=== PATIENT | male | born 1970 | race Caucasian/White ===

== ENCOUNTER 2024-11-10 19:04 | Emergency (ER) | payer BC, OTHER, SELFPAY ==
[2024-11-10 19:24] VITALS: BP 172/102; PULSE 69; RESP 15; TEMP 36; O2SAT 95; BMI 28.6
--- NOTE | 2024-11-10 19:29 | DI.RAD.S_ITS ---
PROCEDURE: XR RIBS LT MIN 3V W CXR1V INDICATIONS: fall, left rib pain TECHNIQUE: 2 views of the ribs were acquired, along with a single view chest. COMPARISON: None. FINDINGS: Surgical changes and devices: None. Bones and chest wall: Suspected minimally displaced fracture of the anterior left 7th rib. No suspicious bony lesions. Overlying soft tissues appear unremarkable. Lungs and pleura: No pleural effusions or pneumothorax. Lungs appear clear. Mediastinum: Mediastinal contours appear normal. Heart size is normal. IMPRESSION: Suspected minimally displaced fracture of the anterior left 7th rib. No pleural effusion or pneumothorax. Approved by: Laci Carmen M.D. on 11/10/2024 at 20:13
== END 2024-11-10 23:15 | disposition left against medical advice (07) ==
PROVIDERS: Emergency Provider Emergency Medicine; PCP Family Medicine
DX: R07.81 Pleurodynia (principal); W10.1XXA Fall (on)(from) sidewalk curb, initial encounter
CPT/HCPCS: 71101; 99281

== ENCOUNTER → 2024-11-23 08:03 | Outpatient (CLI) | payer BC, OTHER, SELFPAY ==
[2024-11-23 09:02] LABS: Add Manual Diff / Slide Review NO; Basophils Absolute Auto 100 /uL (0-100); Eosinophils Absolute Auto 200 /uL (0-450); Eosinophils Percent Auto 3.5 % (2-4); Hematocrit 45.4 % (41-53); Hemoglobin 16.1 g/dL (13.5-17.5); Lymphocytes Absolute Auto 1400 /uL (1100-4500); Mean Corpuscular HGB Conc 35.4 % (30-36); Mean Corpuscular Hemoglobin 32.3 PG (26-34); Mean Corpuscular Volume 91.3 fL (80-100); Monocytes Absolute Auto 500 /uL (0-900); Monocytes Percent Auto 8.1 % (3-14); Neutrophils Absolute Auto 4400 /uL (1500-7000); Neutrophils Percent Auto 66.4 % (50-75); Platelet Count 211 X10^3/uL (150-400); Red Blood Cell Count 4.97 X10^6/uL (4.5-5.9); Red Cell Distribution Width 13.7 % (11.6-14.8); White Blood Cell Count 6.7 X10^3/uL (4.5-11.0)
[2024-11-23 09:12] LABS: Hemoglobin A1C% w Est Avg Glu 6.2 % (4.0-6.0)
[2024-11-23 09:20] LABS: Alanine Aminotransferase 30 IU/L (<50); Albumin 4.5 g/dL (3.5-5.0); Alkaline Phosphatase 81 U/L (38-126); Aspartate Aminotransferase 32 IU/L (17-59); BUN Creatinine Ratio 28.2 (6-22); Bilirubin Total 0.7 mg/dL (0.2-1.3); Blood Urea Nitrogen 24 mg/dL (9-20); Calcium 9.2 mg/dL (8.4-10.2); Carbon Dioxide 26 mmol/L (22-32); Chloride 104 mmol/L (98-107); Cholesterol 137 mg/dL (140-199); Estimated Glomerular Filt Rate > 60 mL/min (>60); Globulin 2.2 g/dL (1.7-4.1); Glucose 144 mg/dL (70-99); HDL Cholesterol 34 mg/dL (40-60); HEMOLYSIS < 15 (0-50); LDL Cholesterol Calculated 68 mg/dL (<100); Potassium 3.7 mmol/L (3.4-5.1); Sodium 139 mmol/L (137-145); Total Protein 6.7 g/dL (6.3-8.2); Triglycerides 174 mg/dL (35-150)
== END ==
PROVIDERS: PCP Family Medicine; Referring Provider Family Medicine; Visit Provider Family Medicine
DX: I10 Essential (primary) hypertension (principal); E78.5 Hyperlipidemia, unspecified; E11.9 Type 2 diabetes mellitus without complications
CPT/HCPCS: 36415; 80053; 80061; 83036; 85025

== ENCOUNTER → 2024-12-08 10:38 | Outpatient (CLI) | payer BC, OTHER, SELFPAY | PROVIDERS: PCP Family Medicine; Referring Provider Urology; Visit Provider Urology | DX: N40.1 Benign prostatic hyperplasia with lower urinary tract symptoms (principal); Z12.5 Encounter for screening for malignant neoplasm of prostate; N52.9 Male erectile dysfunction, unspecified; R39.14 Feeling of incomplete bladder emptying; R35.1 Nocturia | CPT/HCPCS: 36415; 51798; 84153 ==

== ENCOUNTER 2025-03-03 15:15 | Outpatient (RCR) | payer BC, OTHER, SELFPAY ==
--- NOTE | 2024-12-11 17:24 | PT.OIE ---
Current Diagnoses Other specified postprocedural states (12/11/24) Past Medical History (Last Reviewed 12/08/24 @ 09:32 by Clive Davey DO) Patient left without being seen Visit Care Team Role Provider Type Juana Mcmanus DO Attending Provider Physician Family Provider Primary Care Provider Referring Provider Specialty: Family Practice Address: [address] [place] [address], [facility] Email: [email or web address] Physical Therapy Initial Evaluation PT-OP-A Visit Information Start: 12/11/24 15:25 Freq: Status: Active Protocol: Document 12/11/24 15:25 BL (Rec: 12/11/24 17:23 BL Laptop) Out-Patient Physical Therapy Visit Information Visit Information Visit Type Initial Evaluation Visit Start Time 15:25 Visit Number (1) 1/10 Number of TUFT MACHINE OPERATOR Visits 0 PT-OP-C Subjective Start: 12/11/24 15:25 Freq: Status: Active Protocol: Document 12/11/24 15:25 BL (Rec: 12/11/24 17:23 BL Laptop) OP-PT Subjective Patient Comments Patient Comments Pt presents to the clinic following L shoulder rotator cuff repair on May 142023. Pt had follow up on November 24. Pt was cleared from the surgeon for return to normal activity. Surgeon did state that pt was limited in full AROM and strength and suggested return to PT for additional strength and ROM training. Pt states he recently moved to the area in September however has not been very active due to a recent fall resulting in a broken 7th rib on the L side. States this is mostly healed and he has started to return to activity but has not returned to the gym yet. Pt states no pain with activity but has been very cautious with motions away from the side of his body. He states his goals are to return to regular strength training. Patient Reported Progress Improving Patient Questionnaires Quick Dash- Upper Extremity Quick Dash UE Score 6% disability PT-OP-H Neuro Start: 12/11/24 15:25 Freq: Status: Active Protocol: Document 12/11/24 15:25 BL (Rec: 12/11/24 17:23 BL Laptop) Sensation Evaluation Comments Summary Comments no sensation loss noted Coordination Evaluation Comments Coordination Comments no coordination deficits noted PT-OP-J Posture/Palpation/Skin Start: 12/11/24 15:25 Freq: Status: Active Protocol: Document 12/11/24 15:25 BL (Rec: 12/11/24 17:23 BL Laptop) Posture Evaluation Comments Posture Comments Pt demos normal posture, demos protracted positioning of L shoulder along with slight wining noted. Palpation Assessment Location Shoulder Palpation Details Pt demos increased tissue tension through L upper trap, demos decreased muscle tone to L scapular musculature. PT-OP-K Range of Motion Start: 12/11/24 15:25 Freq: Status: Active Protocol: Document 12/11/24 15:25 BL (Rec: 12/11/24 17:23 BL Laptop) Cervical Spine Range of Motion Cervical Spine Active Percentage Comments Demos full AROM without pain. Shoulder Goniometric Range of Motion Shoulder Left Flexion 140 Abduction 170 External Rotation at 45 degrees 60 Abduction Internal Rotation 70 PT-OP-M Strength Start: 12/11/24 15:25 Freq: Status: Active Protocol: Document 12/11/24 15:25 BL (Rec: 12/11/24 17:23 BL Laptop) Scapula Strength Scapula Manual Muscle Testing Right Elevation (C4) 5 Normal Adduction 4+ Good+ Left Elevation (C4) 5 Normal Adduction 4- Good- Shoulder Strength Shoulder Manual Muscle Testing Right Flexion 4+ Good+ Abduction (C5) 4+ Good+ Adduction 4+ Good+ External Rotation 4+ Good+ Internal Rotation 4+ Good+ Left Flexion 4 Good Extension 4- Good- Abduction (C5) 4- Good- Adduction 4 Good External Rotation 4 Good Internal Rotation 4 Good PT-OP-T Assessment and Plan Start: 12/11/24 15:25 Freq: Status: Active Protocol: Document 12/11/24 15:25 BL (Rec: 12/11/24 17:23 BL Laptop) Physical Therapy Assessment Rehab Potential Rehabilitation Potential Good Impairments Impairments Activity Tolerance, Coordination,Functional Activities,Functional Mobility ,Posture,ROM,Soft Tissue Mobility,Strength Goals 3 Clip On Sunglasses Inspector Goal (LTG) Pt will be able to complete 10 pushups without winging of L scapular for functional strength training by DC to reduce risk of re-injury. 2 Clip On Sunglasses Inspector Goal (LTG) Pt will demo shoulder flexion strength of 4+/5 by DC for improved functional strength for ADLS. 1 Short Term Goal (STG) Pt will be ind with HEP within 2 visits in order to progress toward adjunct faculty for medical terminology therapy goals. Jail Goal (LTG) Pt will demo full shoulder flexion to 160 deg or better by DC for improved functional range for overhead activities. Assessment Summary Assessment Pt presents seven months s/p L RC repair with good success, pt demos near full AROM without pain, pt continues to demo deficits in posture and scapular strength. Pt will benefit from skilled Physical Therapy intervention for safe exercise progression as he returns to weight lifting while also focusing on continued scapular strengthening and addressing deficits in AROM for return to PLOF. Physical Therapy Plan Frequency and Duration Frequency of Treatment 2x/Week Duration of treatment (weeks) 8 Plan of Care Start Date 12/11/24 Plan of Care End Date 02/05/25 Therapeutic Interventions Therapeutic Interventions Coordination Training,Home Exercise Program,Joint Mobilizations,Manual Therapy, Neuromuscular Re-education, Patient/Caregiver Education, Self-Care/Home Management,Soft Tissue Mobilization,Taping, Therapeutic Activities, Therapeutic Exercises Modalities Cold Pack/Ice Massage,Electric Stimulation,Hot Packs, Infrared Therapy,Traction- Mechanical,Ultrasound Next Visit Focus/Plan Next Note Type Treatment Note Next Visit Plan review gym workout and modify, progress scapular strengthening, AROM of shoulder into flexion
--- NOTE | 2024-12-11 17:25 | PT.OPPOC ---
Physical, Occupational & Speech Therapy At [facility] Current Diagnoses Other specified postprocedural states (12/11/24) Visit Care Team Role Provider Type Juana Mcmanus DO Attending Provider Physician Family Provider Primary Care Provider Referring Provider Specialty: Family Practice Address: [address] [place] [address], [address], [facility] Email: [email or web address] Plan Of Care PT-OP-T Assessment and Plan Start: 12/11/24 15:25 Freq: Status: Active Protocol: Document 12/11/24 15:25 BL (Rec: 12/11/24 17:23 BL Laptop) Physical Therapy Assessment Rehab Potential Rehabilitation Potential Good Impairments Impairments Activity Tolerance, Coordination,Functional Activities,Functional Mobility ,Posture,ROM,Soft Tissue Mobility,Strength Goals 3 Broker In Charge Goal (LTG) Pt will be able to complete 10 pushups without winging of L scapular for functional strength training by DC to reduce risk of re-injury. 2 Broker In Charge Goal (LTG) Pt will demo shoulder flexion strength of 4+/5 by DC for improved functional strength for ADLS. 1 Short Term Goal (STG) Pt will be ind with HEP within 2 visits in order to progress toward [facility] therapy goals. Snf Goal (LTG) Pt will demo full shoulder flexion to 160 deg or better by DC for improved functional range for overhead activities. Assessment Summary Assessment Pt presents seven months s/p L RC repair with good success, pt demos near full AROM without pain, pt continues to demo deficits in posture and scapular strength. Pt will benefit from skilled Physical Therapy intervention for safe exercise progression as he returns to weight lifting while also focusing on continued scapular strengthening and addressing deficits in AROM for return to PLOF. Physical Therapy Plan Frequency and Duration Frequency of Treatment 2x/Week Duration of treatment (weeks) 8 Plan of Care Start Date 12/11/24 Plan of Care End Date 02/05/25 Therapeutic Interventions Therapeutic Interventions Coordination Training,Home Exercise Program,Joint Mobilizations,Manual Therapy, Neuromuscular Re-education, Patient/Caregiver Education, Self-Care/Home Management,Soft Tissue Mobilization,Taping, Therapeutic Activities, Therapeutic Exercises Modalities Cold Pack/Ice Massage,Electric Stimulation,Hot Packs, Infrared Therapy,Traction- Mechanical,Ultrasound Next Visit Focus/Plan Next Note Type Treatment Note Next Visit Plan review gym workout and modify, progress scapular strengthening, AROM of shoulder into flexion Plan of Care Dates Plan of Care Start Date 12/11/24 Plan of Care End Date 02/05/25 Electronically Signed by: Ramon Salcido, PT 12/11/24 5224 If you are in agreement with this Plan of Care, please return a signed and dated copy. I have reviewed this Plan of Care and certify that the skilled therapy services above are required to meet the patient?s needs. Physician Signature Date Printed Name and Credentials Clinical Instructor Signature Printed Name and Credentials
--- NOTE | 2024-12-18 12:18 | PT.OTN ---
Current Diagnoses Other specified postprocedural states (12/18/24) Physical Therapy Treatment Note PT-OP-A Visit Information Start: 12/11/24 15:25 Freq: Status: Active Protocol: Document 12/18/24 11:35 BL (Rec: 12/18/24 12:18 BL Laptop) Out-Patient Physical Therapy Visit Information Visit Information Visit Type Treatment Note Visit Start Time 07:30 Visit Stop Time 08:15 Visit Number (2) 2/10 Number of EQUITY TRADER Visits 0 PT-OP-C Subjective Start: 12/11/24 15:25 Freq: Status: Active Protocol: Document 12/18/24 11:35 BL (Rec: 12/18/24 12:18 BL Laptop) OP-PT Subjective Patient Comments Patient Comments Pt presents to the clinic this date and reports he is doing well, states returning to the gym felt good, was able to maintain current weight without increased discomfort, states he did feel more fatigued. PT-OP-H Neuro Start: 12/11/24 15:25 Freq: Status: Active Protocol: Document 12/11/24 15:25 BL (Rec: 12/11/24 17:23 BL Laptop) Sensation Evaluation Comments Summary Comments no sensation loss noted Coordination Evaluation Comments Coordination no coordination deficits noted Comments PT-OP-J Posture/Palpation/Skin Start: 12/11/24 15:25 Freq: Status: Active Protocol: Document 12/11/24 15:25 BL (Rec: 12/11/24 17:23 BL Laptop) Posture Evaluation Comments Posture Comments Pt demos normal posture, demos protracted positioning of L shoulder along with slight wining noted. Palpation Assessment Location Shoulder Palpation Details Pt demos increased tissue tension through L upper trap, demos decreased muscle tone to L scapular musculature. PT-OP-K Range of Motion Start: 12/11/24 15:25 Freq: Status: Active Protocol: Document 12/11/24 15:25 BL (Rec: 12/11/24 17:23 BL Laptop) Cervical Spine Range of Motion Cervical Spine Active Percentage Comments Demos full AROM without pain. Shoulder Goniometric Range of Motion Shoulder Left Flexion 140 Abduction 170 External Rotation at 60 45 degrees Abduction Internal Rotation 70 PT-OP-M Strength Start: 12/11/24 15:25 Freq: Status: Active Protocol: Document 12/11/24 15:25 BL (Rec: 05/30/25 17:23 BL Laptop) Scapula Strength Scapula Manual Muscle Testing Right Elevation (C4) 5 Normal Adduction 4+ Good+ Left Elevation (C4) 5 Normal Adduction 4- Good- Shoulder Strength Shoulder Manual Muscle Testing Right Flexion 4+ Good+ Abduction (C5) 4+ Good+ Adduction 4+ Good+ External Rotation 4+ Good+ Internal Rotation 4+ Good+ Left Flexion 4 Good Extension 4- Good- Abduction (C5) 4- Good- Adduction 4 Good External Rotation 4 Good Internal Rotation 4 Good PT-OP-Q Treatments Start: 12/11/24 15:25 Freq: Status: Active Protocol: Document 12/18/24 11:35 BL (Rec: 12/18/24 12:18 BL Laptop) Therapeutic Exercises Supine Exercises Ts, Is, As Side left Resistance 3# Reps/Minutes 10 Prone Exercises Ts, Ys, Ext Side left Resistance 3# Reps/Minutes 15x Standing Exercises Bent over rows Resistance 5# Reps/Minutes 15x Gym Standing Exercise Discussed progressing rows and extension with cable Name machine, Reps/Minutes 15# shoulder Standing Exercise PNF D2 flexion, Doorway st Name Resistance 1# Reps/Minutes 15x, 3x 30 sec Comments Trialed Wall angles, difficulty with horizontal abduction Other Exercises stretching Other Exercise Name doorway, wall angles, pull up stretch Comments 3x 30 sec PT-OP-T Assessment and Plan Start: 12/11/24 15:25 Freq: Status: Active Protocol: Document 12/18/24 11:35 BL (Rec: 12/18/24 12:18 BL Laptop) Physical Therapy Assessment Goals 3 [facility] Goal (LTG) Pt will be able to complete 10 pushups without winging of L scapular for functional strength training by DC to reduce risk of re-injury. 2 [facility] Goal (LTG) Pt will demo shoulder flexion strength of 4+/5 by DC for improved functional strength for ADLS. 1 Short Term Goal (STG Pt will be ind with HEP within 2 visits in order to ) progress toward computer terminal operator therapy goals. [facility] Goal (LTG) Pt will demo full shoulder flexion to 160 deg or better by DC for improved functional range for overhead activities. Assessment Summary Assessment Pt progressing well, tolerates advancement, continue to focus on scapular strengthening and ROM strengthening. Physical Therapy Plan Frequency and Duration Frequency of 2x/Week Treatment Duration of 8 treatment (weeks) Plan of Care Start 12/11/24 Date Plan of Care End 02/05/25 Date Next Visit Focus/Plan Next Note Type Treatment Note Next Visit Plan review gym workout and modify, progress scapular strengthening, AROM of glenohumeral ROM
--- NOTE | 2024-12-23 16:16 | PT.OTN ---
Current Diagnoses Other specified postprocedural states (12/23/24) Physical Therapy Treatment Note PT-OP-A Visit Information Start: 12/11/24 15:25 Freq: Status: Active Protocol: Document 12/23/24 13:44 BL (Rec: 12/23/24 16:16 BL Laptop) Out-Patient Physical Therapy Visit Information Visit Information Visit Type Treatment Note Visit Start Time 13:45 Visit Stop Time 14:25 Visit Number (3) 3/10 (PN 01/11/25) Number of FAMILY COURT COUNSELLOR Visits 0 PT-OP-C Subjective Start: 12/11/24 15:25 Freq: Status: Active Protocol: Document 12/23/24 13:44 BL (Rec: 12/23/24 16:16 BL Laptop) OP-PT Subjective Patient Comments Patient Comments Pt presents to the clinic this date and reports he is doing well, reports gym activities are going well, reports feels his ROM continues to improve. PT-OP-H Neuro Start: 12/11/24 15:25 Freq: Status: Active Protocol: Document 12/11/24 15:25 BL (Rec: 12/11/24 17:23 BL Laptop) Sensation Evaluation Comments Summary Comments no sensation loss noted Coordination Evaluation Comments Coordination no coordination deficits noted Comments PT-OP-J Posture/Palpation/Skin Start: 12/11/24 15:25 Freq: Status: Active Protocol: Document 12/11/24 15:25 BL (Rec: 12/11/24 17:23 BL Laptop) Posture Evaluation Comments Posture Comments Pt demos normal posture, demos protracted positioning of L shoulder along with slight wining noted. Palpation Assessment Location Shoulder Palpation Details Pt demos increased tissue tension through L upper trap, demos decreased muscle tone to L scapular musculature. PT-OP-K Range of Motion Start: 12/11/24 15:25 Freq: Status: Active Protocol: Document 12/11/24 15:25 BL (Rec: 12/11/24 17:23 BL Laptop) Cervical Spine Range of Motion Cervical Spine Active Percentage Comments Demos full AROM without pain. Shoulder Goniometric Range of Motion Shoulder Left Flexion 140 Abduction 170 External Rotation at 60 45 degrees Abduction Internal Rotation 70 PT-OP-M Strength Start: 12/11/24 15:25 Freq: Status: Active Protocol: Document 12/11/24 15:25 BL (Rec: 12/11/24 17:23 BL Laptop) Scapula Strength Scapula Manual Muscle Testing Right Elevation (C4) 5 Normal Adduction 4+ Good+ Left Elevation (C4) 5 Normal Adduction 4- Good- Shoulder Strength Shoulder Manual Muscle Testing Right Flexion 4+ Good+ Abduction (C5) 4+ Good+ Adduction 4+ Good+ External Rotation 4+ Good+ Internal Rotation 4+ Good+ Left Flexion 4 Good Extension 4- Good- Abduction (C5) 4- Good- Adduction 4 Good External Rotation 4 Good Internal Rotation 4 Good PT-OP-Q Treatments Start: 12/11/24 15:25 Freq: Status: Active Protocol: Document 12/23/24 13:44 BL (Rec: 12/23/24 16:16 BL Laptop) Therapeutic Exercises Supine Exercises Ts, Is, As Side left Resistance 5# Reps/Minutes 15x3 Prone Exercises Ts, Ys, Ext Side left Resistance 5#, 3# Reps/Minutes 15x Standing Exercises Bent over rows Resistance 5# Reps/Minutes 15x Gym Standing Exercise Trialed seated rowing machine and shoulder positioning. Name Reps/Minutes 15# shoulder Standing Exercise PNF D2 flexion, Doorway st Name Resistance Lvl1 band Reps/Minutes 15x, 3x 30 sec Comments Trialed Wall angles, difficulty with horizontal abduction Other Exercises stretching Other Exercise Name doorway, wall angles, pull up stretch Comments 3x 30 sec PT-OP-T Assessment and Plan Start: 12/11/24 15:25 Freq: Status: Active Protocol: Document 12/23/24 13:44 BL (Rec: 12/23/24 16:16 BL Laptop) Physical Therapy Assessment Goals 3 Safemaker Goal (LTG) Pt will be able to complete 10 pushups without winging of L scapular for functional strength training by DC to reduce risk of re-injury. 2 Safemaker Goal (LTG) Pt will demo shoulder flexion strength of 4+/5 by DC for improved functional strength for ADLS. 1 Short Term Goal (STG Pt will be ind with HEP within 2 visits in order to ) progress toward terminal gauger therapy goals. Prison Goal (LTG) Pt will demo full shoulder flexion to 160 deg or better by DC for improved functional range for overhead activities. Assessment Summary Assessment Pt progressing well, tolerates advancement, continue to focus on scapular strength and glenohumeral ROM. Physical Therapy Plan Frequency and Duration Frequency of 2x/Week Treatment Duration of 8 treatment (weeks) Plan of Care Start 12/11/24 Date Plan of Care End 02/05/25 Date Next Visit Focus/Plan Next Note Type Treatment Note Next Visit Plan review gym workout and modify, progress scapular strengthening, AROM of glenohumeral ROM
--- NOTE | 2024-12-25 17:32 | PT.OTN ---
Current Diagnoses Other specified postprocedural states (12/23/24) Physical Therapy Treatment Note PT-OP-A Visit Information Start: 12/11/24 15:25 Freq: Status: Active Protocol: Document 12/25/24 16:10 BL (Rec: 12/25/24 17:32 BL Laptop) Out-Patient Physical Therapy Visit Information Visit Information Visit Type Treatment Note Visit Start Time 16:15 Visit Stop Time 16:55 Visit Number (4) 4/10 (PN 01/11/25) Number of IT RISK ADVISOR Visits 0 PT-OP-C Subjective Start: 12/11/24 15:25 Freq: Status: Active Protocol: Document 12/25/24 16:10 BL (Rec: 12/25/24 17:32 BL Laptop) OP-PT Subjective Patient Comments Patient Comments Pt presents to the clinic this date and reports he is doing well, states gym routine is doing well, continues to advance. PT-OP-H Neuro Start: 12/11/24 15:25 Freq: Status: Active Protocol: Document 12/11/24 15:25 BL (Rec: 12/11/24 17:23 BL Laptop) Sensation Evaluation Comments Summary Comments no sensation loss noted Coordination Evaluation Comments Coordination no coordination deficits noted Comments PT-OP-J Posture/Palpation/Skin Start: 12/11/24 15:25 Freq: Status: Active Protocol: Document 12/11/24 15:25 BL (Rec: 12/11/24 17:23 BL Laptop) Posture Evaluation Comments Posture Comments Pt demos normal posture, demos protracted positioning of L shoulder along with slight wining noted. Palpation Assessment Location Shoulder Palpation Details Pt demos increased tissue tension through L upper trap, demos decreased muscle tone to L scapular musculature. PT-OP-K Range of Motion Start: 12/11/24 15:25 Freq: Status: Active Protocol: Document 12/11/24 15:25 BL (Rec: 12/11/24 17:23 BL Laptop) Cervical Spine Range of Motion Cervical Spine Active Percentage Comments Demos full AROM without pain. Shoulder Goniometric Range of Motion Shoulder Left Flexion 140 Abduction 170 External Rotation at 60 45 degrees Abduction Internal Rotation 70 PT-OP-M Strength Start: 12/11/24 15:25 Freq: Status: Active Protocol: Document 12/11/24 15:25 BL (Rec: 12/11/24 17:23 BL Laptop) Scapula Strength Scapula Manual Muscle Testing Right Elevation (C4) 5 Normal Adduction 4+ Good+ Left Elevation (C4) 5 Normal Adduction 4- Good- Shoulder Strength Shoulder Manual Muscle Testing Right Flexion 4+ Good+ Abduction (C5) 4+ Good+ Adduction 4+ Good+ External Rotation 4+ Good+ Internal Rotation 4+ Good+ Left Flexion 4 Good Extension 4- Good- Abduction (C5) 4- Good- Adduction 4 Good External Rotation 4 Good Internal Rotation 4 Good PT-OP-Q Treatments Start: 12/11/24 15:25 Freq: Status: Active Protocol: Document 12/25/24 16:10 BL (Rec: 12/25/24 17:32 BL Laptop) Therapeutic Exercises Supine Exercises Ts, Is, As Side left Resistance 5# Reps/Minutes 15x3 Prone Exercises Ts, Ys, Ext Side left Resistance 5#, Reps/Minutes 15x Standing Exercises Body Blade Standing Exercise IR/ER, flex/ext, abd/add Name Resistance Lvl 1 Comments 3x 30 sec Bent over rows Resistance 5# Reps/Minutes 15x Gym Standing Exercise Trialed seated rowing machine and shoulder positioning. Name Reps/Minutes 15# shoulder Standing Exercise PNF D2 flexion, Doorway st Name Resistance Lvl1 band Reps/Minutes 15x, 3x 30 sec Comments Trialed Wall angles, difficulty with horizontal abduction Other Exercises stretching Other Exercise Name doorway, wall angles, pull up stretch, Prone supermans Comments 3x 30 sec/ 15x PT-OP-T Assessment and Plan Start: 12/11/24 15:25 Freq: Status: Active Protocol: Document 12/25/24 16:10 BL (Rec: 12/25/24 17:32 BL Laptop) Physical Therapy Assessment Goals 3 Half-Way Goal (LTG) Pt will be able to complete 10 pushups without winging of L scapular for functional strength training by DC to reduce risk of re-injury. 2 Half-Way Goal (LTG) Pt will demo shoulder flexion strength of 4+/5 by DC for improved functional strength for ADLS. 1 Short Term Goal (STG Pt will be ind with HEP within 2 visits in order to ) progress toward watermelon inspector therapy goals. Half-Way Goal (LTG) Pt will demo full shoulder flexion to 160 deg or better by DC for improved functional range for overhead activities. Assessment Summary Assessment Pt tolerates session well, continue to focus on scapular strength and glenohumeral ROM/Strength. Pt tolerates progress toward dynamic away from body activity for rhythmic stabilization without no pain. Physical Therapy Plan Frequency and Duration Frequency of 2x/Week Treatment Duration of 8 treatment (weeks) Plan of Care Start 12/11/24 Date Plan of Care End 02/05/25 Date Next Visit Focus/Plan Next Note Type Treatment Note Next Visit Plan review gym workout and modify, progress scapular strengthening, AROM of glenohumeral ROM
--- NOTE | 2025-01-13 09:49 | PT.OTN ---
Current Diagnoses Other specified postprocedural states (01/13/25) Physical Therapy Treatment Note PT-OP-A Visit Information Start: 12/11/24 15:25 Freq: Status: Active Protocol: Document 01/13/25 09:08 BL (Rec: 01/13/25 09:49 BL Laptop) Out-Patient Physical Therapy Visit Information Visit Information Visit Type Progress Note Visit Start Time 09:00 Visit Stop Time 09:40 Visit Number (2) / (PN 02/07/25) Number of INSTRUCTOR WARPER Visits 0 PT-OP-C Subjective Start: 12/11/24 15:25 Freq: Status: Active Protocol: Document 01/13/25 09:08 BL (Rec: 01/13/25 09:49 BL Laptop) OP-PT Subjective Patient Comments Patient Comments Pt reports HEP continues to improve, reports he feels his strength is progressing. PT-OP-H Neuro Start: 12/11/24 15:25 Freq: Status: Active Protocol: Document 12/11/24 15:25 BL (Rec: 12/11/24 17:23 BL Laptop) Sensation Evaluation Comments Summary Comments no sensation loss noted Coordination Evaluation Comments Coordination no coordination deficits noted Comments PT-OP-J Posture/Palpation/Skin Start: 12/11/24 15:25 Freq: Status: Active Protocol: Document 12/11/24 15:25 BL (Rec: 12/11/24 17:23 BL Laptop) Posture Evaluation Comments Posture Comments Pt demos normal posture, demos protracted positioning of L shoulder along with slight wining noted. Palpation Assessment Location Shoulder Palpation Details Pt demos increased tissue tension through L upper trap, demos decreased muscle tone to L scapular musculature. PT-OP-K Range of Motion Start: 12/11/24 15:25 Freq: Status: Active Protocol: Document 12/11/24 15:25 BL (Rec: 12/11/24 17:23 BL Laptop) Cervical Spine Range of Motion Cervical Spine Active Percentage Comments Demos full AROM without pain. Shoulder Goniometric Range of Motion Shoulder Left Flexion 140 Abduction 170 External Rotation at 60 45 degrees Abduction Internal Rotation 70 PT-OP-M Strength Start: 12/11/24 15:25 Freq: Status: Active Protocol: Document 12/11/24 15:25 BL (Rec: 12/11/24 17:23 BL Laptop) Scapula Strength Scapula Manual Muscle Testing Right Elevation (C4) 5 Normal Adduction 4+ Good+ Left Elevation (C4) 5 Normal Adduction 4- Good- Shoulder Strength Shoulder Manual Muscle Testing Right Flexion 4+ Good+ Abduction (C5) 4+ Good+ Adduction 4+ Good+ External Rotation 4+ Good+ Internal Rotation 4+ Good+ Left Flexion 4 Good Extension 4- Good- Abduction (C5) 4- Good- Adduction 4 Good External Rotation 4 Good Internal Rotation 4 Good PT-OP-Q Treatments Start: 12/11/24 15:25 Freq: Status: Active Protocol: Document 01/13/25 09:08 BL (Rec: 01/13/25 09:49 BL Laptop) Therapeutic Exercises Supine Exercises Ts, Is, As Supine Exercise Name reviewed Side left Resistance 5# Reps/Minutes 15x3 Prone Exercises Ts, Ys, Ext Side left Resistance 5#, Reps/Minutes 15x Standing Exercises stability Standing Exercise Body Blade 4 way single/double hand, wall ball Name Equipment Used classic/ red TB Body Blade Standing Exercise IR/ER, flex/ext, abd/add Name Resistance classic Comments 3x 30 sec Other Exercises stretching Other Exercise Name doorway, wall angles, pull up stretch, Prone supermans( reviewed) Comments 3x 30 sec/ 15x PT-OP-T Assessment and Plan Start: 12/11/24 15:25 Freq: Status: Active Protocol: Document 01/13/25 09:08 BL (Rec: 01/13/25 09:49 BL Laptop) Physical Therapy Assessment Goals 3 Tire Builder Operator Goal (LTG) Pt will be able to complete 10 pushups without winging of L scapular for functional strength training by DC to reduce risk of re-injury. 2 Tire Builder Operator Goal (LTG) Pt will demo shoulder flexion strength of 4+/5 by DC for improved functional strength for ADLS. 1 Short Term Goal (STG Pt will be ind with HEP within 2 visits in order to ) progress toward long-term therapy goals. Tire Builder Operator Goal (LTG) Pt will demo full shoulder flexion to 160 deg or better by DC for improved functional range for overhead activities. Assessment Summary Assessment Pt tolerates session well, continue to focus on scapular and rotator cuff stability. Pt fatigued at end of session. Physical Therapy Plan Frequency and Duration Frequency of 2x/Week Treatment Duration of 8 treatment (weeks) Plan of Care Start 12/11/24 Date Plan of Care End 02/05/25 Date Next Visit Focus/Plan Next Note Type Treatment Note Next Visit Plan review gym workout and modify, progress scapular strengthening, AROM of glenohumeral ROM/ strengthening
--- NOTE | 2025-01-21 08:15 | PT.OTN ---
Current Diagnoses Other specified postprocedural states (01/21/25) Physical Therapy Treatment Note PT-OP-A Visit Information Start: 12/11/24 15:25 Freq: Status: Active Protocol: Document 01/21/25 07:37 BL (Rec: 01/21/25 08:14 BL Laptop) Out-Patient Physical Therapy Visit Information Visit Information Visit Type Treatment Note Visit Start Time 09:00 Visit Stop Time 09:40 Visit Number (7) 3/10 (PN 02/07/25) Number of DIGITAL AD TRAFFICKER Visits 0 PT-OP-C Subjective Start: 12/11/24 15:25 Freq: Status: Active Protocol: Document 01/21/25 07:37 BL (Rec: 01/21/25 08:14 BL Laptop) OP-PT Subjective Patient Comments Patient Comments Pt presents to the clinic this date and reports he is doing well, pt states shoulder is feeling really good but has noticed R lateral hip pain and low back pain after helping a friend move. PT-OP-H Neuro Start: 12/11/24 15:25 Freq: Status: Active Protocol: Document 12/11/24 15:25 BL (Rec: 12/11/24 17:23 BL Laptop) Sensation Evaluation Comments Summary Comments no sensation loss noted Coordination Evaluation Comments Coordination no coordination deficits noted Comments PT-OP-J Posture/Palpation/Skin Start: 12/11/24 15:25 Freq: Status: Active Protocol: Document 12/11/24 15:25 BL (Rec: 12/11/24 17:23 BL Laptop) Posture Evaluation Comments Posture Comments Pt demos normal posture, demos protracted positioning of L shoulder along with slight wining noted. Palpation Assessment Location Shoulder Palpation Details Pt demos increased tissue tension through L upper trap, demos decreased muscle tone to L scapular musculature. PT-OP-K Range of Motion Start: 12/11/24 15:25 Freq: Status: Active Protocol: Document 12/11/24 15:25 BL (Rec: 12/11/24 17:23 BL Laptop) Cervical Spine Range of Motion Cervical Spine Active Percentage Comments Demos full AROM without pain. Shoulder Goniometric Range of Motion Shoulder Left Flexion 140 Abduction 170 External Rotation at 60 45 degrees Abduction Internal Rotation 70 PT-OP-M Strength Start: 12/11/24 15:25 Freq: Status: Active Protocol: Document 12/11/24 15:25 BL (Rec: 12/11/24 17:23 BL Laptop) Scapula Strength Scapula Manual Muscle Testing Right Elevation (C4) 5 Normal Adduction 4+ Good+ Left Elevation (C4) 5 Normal Adduction 4- Good- Shoulder Strength Shoulder Manual Muscle Testing Right Flexion 4+ Good+ Abduction (C5) 4+ Good+ Adduction 4+ Good+ External Rotation 4+ Good+ Internal Rotation 4+ Good+ Left Flexion 4 Good Extension 4- Good- Abduction (C5) 4- Good- Adduction 4 Good External Rotation 4 Good Internal Rotation 4 Good PT-OP-Q Treatments Start: 12/11/24 15:25 Freq: Status: Active Protocol: Document 01/21/25 07:37 BL (Rec: 01/21/25 08:14 BL Laptop) Therapeutic Exercises Supine Exercises Ts, Is, As Supine Exercise Name reviewed Side left Resistance 5# Reps/Minutes 15x3 Standing Exercises stability Standing Exercise , wall ball, wall walks w/TB Name Equipment Used classic/ red TB, lvl 1 Comments 3x6 Body Blade Standing Exercise IR/ER, flex/ext, abd/add, single hand and double hand Name Resistance classic Comments 3x 30 sec shoulder Standing Exercise trialed orange sport cord PNF D2 flex Name Comments Pt demos sligh discomfort and held this date. PT-OP-T Assessment and Plan Start: 12/11/24 15:25 Freq: Status: Active Protocol: Document 01/21/25 07:37 BL (Rec: 01/21/25 08:14 BL Laptop) Physical Therapy Assessment Goals 3 Senior Living Goal (LTG) Pt will be able to complete 10 pushups without winging of L scapular for functional strength training by DC to reduce risk of re-injury. 2 Senior Living Goal (LTG) Pt will demo shoulder flexion strength of 4+/5 by DC for improved functional strength for ADLS. 1 Short Term Goal (STG Pt will be ind with HEP within 2 visits in order to ) progress toward assistant manager pt therapy goals. Training Development Specialist Goal (LTG) Pt will demo full shoulder flexion to 160 deg or better by DC for improved functional range for overhead activities. Assessment Summary Assessment Pt continues to tolerate advancement for scapular stability and RC strengthening. Continue to advance per pt tolerates, pt fatigued at end of session. Physical Therapy Plan Frequency and Duration Frequency of 2x/Week Treatment Duration of 8 treatment (weeks) Plan of Care Start 12/11/24 Date Plan of Care End 02/05/25 Date Next Visit Focus/Plan Next Note Type Treatment Note Next Visit Plan review gym workout and modify, progress scapular strengthening, AROM of glenohumeral ROM/ strengthening
--- NOTE | 2025-01-28 10:38 | PT.OTN ---
Current Diagnoses Other specified postprocedural states (01/28/25) Physical Therapy Treatment Note PT-OP-A Visit Information Start: 12/11/24 15:25 Freq: Status: Active Protocol: Document 01/28/25 09:45 BL (Rec: 01/28/25 10:38 BL Laptop) Out-Patient Physical Therapy Visit Information Visit Information Visit Type Treatment Note Visit Start Time 09:45 Visit Stop Time 10:25 Visit Number (8) 4/10 (PN 02/07/25) Number of WOOLEN TESTER Visits 0 PT-OP-C Subjective Start: 12/11/24 15:25 Freq: Status: Active Protocol: Document 01/28/25 09:45 BL (Rec: 01/28/25 10:38 BL Laptop) OP-PT Subjective Patient Comments Patient Comments Pt presents to the clinic and reports he continues to do well without pain, states continues to feel weak with overhead activity. PT-OP-H Neuro Start: 12/11/24 15:25 Freq: Status: Active Protocol: Document 12/11/24 15:25 BL (Rec: 12/11/24 17:23 BL Laptop) Sensation Evaluation Comments Summary Comments no sensation loss noted Coordination Evaluation Comments Coordination no coordination deficits noted Comments PT-OP-J Posture/Palpation/Skin Start: 12/11/24 15:25 Freq: Status: Active Protocol: Document 12/11/24 15:25 BL (Rec: 12/11/24 17:23 BL Laptop) Posture Evaluation Comments Posture Comments Pt demos normal posture, demos protracted positioning of L shoulder along with slight wining noted. Palpation Assessment Location Shoulder Palpation Details Pt demos increased tissue tension through L upper trap, demos decreased muscle tone to L scapular musculature. PT-OP-K Range of Motion Start: 12/11/24 15:25 Freq: Status: Active Protocol: Document 12/11/24 15:25 BL (Rec: 12/11/24 17:23 BL Laptop) Cervical Spine Range of Motion Cervical Spine Active Percentage Comments Demos full AROM without pain. Shoulder Goniometric Range of Motion Shoulder Left Flexion 140 Abduction 170 External Rotation at 60 45 degrees Abduction Internal Rotation 70 PT-OP-M Strength Start: 12/11/24 15:25 Freq: Status: Active Protocol: Document 12/11/24 15:25 BL (Rec: 12/11/24 17:23 BL Laptop) Scapula Strength Scapula Manual Muscle Testing Right Elevation (C4) 5 Normal Adduction 4+ Good+ Left Elevation (C4) 5 Normal Adduction 4- Good- Shoulder Strength Shoulder Manual Muscle Testing Right Flexion 4+ Good+ Abduction (C5) 4+ Good+ Adduction 4+ Good+ External Rotation 4+ Good+ Internal Rotation 4+ Good+ Left Flexion 4 Good Extension 4- Good- Abduction (C5) 4- Good- Adduction 4 Good External Rotation 4 Good Internal Rotation 4 Good PT-OP-Q Treatments Start: 12/11/24 15:25 Freq: Status: Active Protocol: Document 01/28/25 09:45 BL (Rec: 01/28/25 10:38 BL Laptop) Therapeutic Exercises Supine Exercises Ts, Is, As Supine Exercise Name reviewed Side left Resistance 5# Reps/Minutes 15x3 Prone Exercises Ts, Ys, Ext Side left Resistance 3#, Reps/Minutes 15x Standing Exercises stability Standing Exercise , wall ball, wall walks w/TB Name Equipment Used classic/ red TB, lvl 1 Comments 3x8 Body Blade Standing Exercise IR/ER, flex/ext, abd/add, single hand and double hand Name Resistance classic Comments 3x 30 sec PT-OP-T Assessment and Plan Start: 12/11/24 15:25 Freq: Status: Active Protocol: Document 01/28/25 09:45 BL (Rec: 01/28/25 10:38 BL Laptop) Physical Therapy Assessment Goals 3 Painter Shipyard Goal (LTG) Pt will be able to complete 10 pushups without winging of L scapular for functional strength training by DC to reduce risk of re-injury. 2 Painter Shipyard Goal (LTG) Pt will demo shoulder flexion strength of 4+/5 by DC for improved functional strength for ADLS. 1 Short Term Goal (STG Pt will be ind with HEP within 2 visits in order to ) progress toward retirement therapy goals. Snf Goal (LTG) Pt will demo full shoulder flexion to 160 deg or better by DC for improved functional range for overhead activities. Assessment Summary Assessment PT continues with slow progression, continues to have light pain with overhead activity. Focus on RC rhythmic stabilization and strengthening within pain free ROM. Physical Therapy Plan Frequency and Duration Frequency of 2x/Week Treatment Duration of 8 treatment (weeks) Plan of Care Start 12/11/24 Date Plan of Care End 02/05/25 Date Next Visit Focus/Plan Next Note Type Treatment Note Next Visit Plan review gym workout and modify, progress scapular strengthening, AROM of glenohumeral ROM/ strengthening
--- NOTE | 2025-02-11 18:34 | PT.OPPOC ---
Physical, Occupational & Speech Therapy At [facility] Current Diagnoses Other specified postprocedural states (02/11/25) Visit Care Team Role Provider Type Juana Mcmanus DO Attending Provider Physician Family Provider Primary Care Provider Referring Provider Specialty: Family Practice Address: [address] [place] [address], [facility] Email: [email or web address] Plan Of Care PT-OP-T Assessment and Plan Start: 12/11/24 15:25 Freq: Status: Active Protocol: Document 02/11/25 09:00 BL (Rec: 02/11/25 09:47 BL Laptop) Physical Therapy Assessment Goals Four Hvac Installation Technician Goal (LTG) Pt will be able to complete away form body abduction to 90 deg with 5# without scapular compensation by DC for improved functional mobility with ADLS. 3 Senior Care Goal (LTG) Pt will be able to complete 10 pushups without winging of L scapular for functional strength training by DC to reduce risk of re-injury. (progressing) 02/11/25: pt is able to complete 10x table push ups with mild scapular compensations this date. 2 Senior Care Goal (LTG) Pt will demo shoulder flexion strength of 4+/5 by DC for improved functional strength for ADLS. (goal met) 1 Short Term Goal (STG Pt will be ind with HEP within 2 visits in order to ) progress toward supervisor long goods therapy goals. (goal met) Hvac Installation Technician Goal (LTG) Pt will demo full shoulder flexion to 160 deg or better by DC for improved functional range for overhead activities. (goal met) Assessment Summary Assessment Pt continues to demo improved mobility and strength however continues to demo decreased scapular stability with away from body activity. Pt has progressed well with RC stability strengthening and will continue to benefit from skilled Physical Therapy intervention for further strength and endurance training for improved functional mobility after DC. Physical Therapy Plan Frequency and Duration Frequency of 2x/Week Treatment Duration of 8 treatment (weeks) Plan of Care Start 12/11/24 Date Plan of Care End 04/08/25 Date Next Visit Focus/Plan Next Note Type Treatment Note Next Visit Plan review gym workout and modify, progress scapular strengthening, AROM of glenohumeral ROM/ strengthening Plan of Care Dates Plan of Care Start Date 12/11/24 Plan of Care End Date 04/08/25 Electronically Signed by: Ramon Salcido, PT 02/11/25 [id number] If you are in agreement with this Plan of Care, please return a signed and dated copy. I have reviewed this Plan of Care and certify that the skilled therapy services above are required to meet the patient?s needs. Physician Signature Date Printed Name and Credentials Clinical Instructor Signature Printed Name and Credentials
--- NOTE | 2025-02-11 18:35 | PT.OTN ---
Current Diagnoses Other specified postprocedural states (02/11/25) Physical Therapy Treatment Note PT-OP-A Visit Information Start: 12/11/24 15:25 Freq: Status: Active Protocol: Document 02/11/25 09:00 BL (Rec: 02/11/25 09:47 BL Laptop) Out-Patient Physical Therapy Visit Information Visit Information Visit Type Progress Note Visit Note Plan of Care Update Visit Start Time 09:00 Visit Stop Time 09:40 Visit Number (9) / (PN 03/14/25) Number of AUTOMATION TEST DEVELOPER Visits 0 PT-OP-C Subjective Start: 12/11/24 15:25 Freq: Status: Active Protocol: Document 02/11/25 09:00 BL (Rec: 02/11/25 09:47 BL Laptop) OP-PT Subjective Patient Comments Patient Comments Pt presents to the clinic and reports he continues to notice improvements in his ROM and strength with ADLS. States he continues to have difficulty with with quick shoulder movements. States his HEP continues to feel fatiguing following. Reports he is happy with his progress and wishes to continue with formal PT. PT-OP-H Neuro Start: 12/11/24 15:25 Freq: Status: Active Protocol: Document 12/11/24 15:25 BL (Rec: 12/11/24 17:23 BL Laptop) Sensation Evaluation Comments Summary Comments no sensation loss noted Coordination Evaluation Comments Coordination no coordination deficits noted Comments PT-OP-J Posture/Palpation/Skin Start: 12/11/24 15:25 Freq: Status: Active Protocol: Document 12/11/24 15:25 BL (Rec: 12/11/24 17:23 BL Laptop) Posture Evaluation Comments Posture Comments Pt demos normal posture, demos protracted positioning of L shoulder along with slight wining noted. Palpation Assessment Location Shoulder Palpation Details Pt demos increased tissue tension through L upper trap, demos decreased muscle tone to L scapular musculature. PT-OP-K Range of Motion Start: 12/11/24 15:25 Freq: Status: Active Protocol: Document 12/11/24 15:25 BL (Rec: 12/11/24 17:23 BL Laptop) Cervical Spine Range of Motion Cervical Spine Active Percentage Comments Demos full AROM without pain. Shoulder Goniometric Range of Motion Shoulder Left Flexion 140 Abduction 170 External Rotation at 60 45 degrees Abduction Internal Rotation 70 PT-OP-M Strength Start: 12/11/24 15:25 Freq: Status: Active Protocol: Document 12/11/24 15:25 BL (Rec: 12/11/24 17:23 BL Laptop) Scapula Strength Scapula Manual Muscle Testing Right Elevation (C4) 5 Normal Adduction 4+ Good+ Left Elevation (C4) 5 Normal Adduction 4- Good- Shoulder Strength Shoulder Manual Muscle Testing Right Flexion 4+ Good+ Abduction (C5) 4+ Good+ Adduction 4+ Good+ External Rotation 4+ Good+ Internal Rotation 4+ Good+ Left Flexion 4 Good Extension 4- Good- Abduction (C5) 4- Good- Adduction 4 Good External Rotation 4 Good Internal Rotation 4 Good PT-OP-Q Treatments Start: 12/11/24 15:25 Freq: Status: Active Protocol: Document 02/11/25 09:00 BL (Rec: 02/11/25 09:47 BL Laptop) Therapeutic Exercises Supine Exercises Ts, Is, As Supine Exercise Name reviewed Side left Resistance 5# Reps/Minutes 15x3 Prone Exercises Ts, Ys, Ext Prone Exercise Name SB 75cm Side bilateral Resistance 2#, Reps/Minutes 15x Standing Exercises stability Standing Exercise , wall ball, wall walks w/TB Name Equipment Used classic/ red TB, lvl 1 Comments 3x8 shoulder Standing Exercise standing shld abd to 90 Name Resistance 2# Comments 2x10 PT-OP-T Assessment and Plan Start: 12/11/24 15:25 Freq: Status: Active Protocol: Document 02/11/25 09:00 BL (Rec: 02/11/25 09:47 BL Laptop) Physical Therapy Assessment Goals Four Fpc Goal (LTG) Pt will be able to complete away form body abduction to 90 deg with 5# without scapular compensation by DC for improved functional mobility with ADLS. 3 Fpc Goal (LTG) Pt will be able to complete 10 pushups without winging of L scapular for functional strength training by DC to reduce risk of re-injury. (progressing) 02/11/25: pt is able to complete 10x table push ups with mild scapular compensations this date. 2 House Worker General Goal (LTG) Pt will demo shoulder flexion strength of 4+/5 by DC for improved functional strength for ADLS. (goal met) 1 Short Term Goal (STG Pt will be ind with HEP within 2 visits in order to ) progress toward sap technical developer therapy goals. (goal met) House Worker General Goal (LTG) Pt will demo full shoulder flexion to 160 deg or better by DC for improved functional range for overhead activities. (goal met) Assessment Summary Assessment Pt continues to demo improved mobility and strength however continues to demo decreased scapular stability with away from body activity. Pt has progressed well with RC stability strengthening and will continue to benefit from skilled Physical Therapy intervention for further strength and endurance training for improved functional mobility after DC. Physical Therapy Plan Frequency and Duration Frequency of 2x/Week Treatment Duration of 8 treatment (weeks) Plan of Care Start 12/11/24 Date Plan of Care End 04/08/25 Date Next Visit Focus/Plan Next Note Type Treatment Note Next Visit Plan review gym workout and modify, progress scapular strengthening, AROM of glenohumeral ROM/ strengthening
--- NOTE | 2025-02-16 11:25 | PT.OTN ---
Current Diagnoses Other specified postprocedural states (02/16/25) Physical Therapy Treatment Note PT-OP-A Visit Information Start: 12/11/24 15:25 Freq: Status: Active Protocol: Document 02/16/25 10:47 BL (Rec: 02/16/25 11:25 BL Laptop) Out-Patient Physical Therapy Visit Information Visit Information Visit Type Treatment Note Visit Start Time 09:00 Visit Stop Time 09:40 Visit Number (9) / (PN 03/14/25) Number of ANIMAL GROOMER Visits 0 PT-OP-C Subjective Start: 12/11/24 15:25 Freq: Status: Active Protocol: Document 02/16/25 10:47 BL (Rec: 02/16/25 11:25 BL Laptop) OP-PT Subjective Patient Comments Patient Comments Pt presents to the clinic this date and reports he is doing well, states no pain, reports he was fatigued following our last session. Pt reports he needs to leave a few minutes early this date. PT-OP-H Neuro Start: 12/11/24 15:25 Freq: Status: Active Protocol: Document 12/11/24 15:25 BL (Rec: 12/11/24 17:23 BL Laptop) Sensation Evaluation Comments Summary Comments no sensation loss noted Coordination Evaluation Comments Coordination no coordination deficits noted Comments PT-OP-J Posture/Palpation/Skin Start: 12/11/24 15:25 Freq: Status: Active Protocol: Document 12/11/24 15:25 BL (Rec: 12/11/24 17:23 BL Laptop) Posture Evaluation Comments Posture Comments Pt demos normal posture, demos protracted positioning of L shoulder along with slight wining noted. Palpation Assessment Location Shoulder Palpation Details Pt demos increased tissue tension through L upper trap, demos decreased muscle tone to L scapular musculature. PT-OP-K Range of Motion Start: 12/11/24 15:25 Freq: Status: Active Protocol: Document 12/11/24 15:25 BL (Rec: 12/11/24 17:23 BL Laptop) Cervical Spine Range of Motion Cervical Spine Active Percentage Comments Demos full AROM without pain. Shoulder Goniometric Range of Motion Shoulder Left Flexion 140 Abduction 170 External Rotation at 60 45 degrees Abduction Internal Rotation 70 PT-OP-M Strength Start: 12/11/24 15:25 Freq: Status: Active Protocol: Document 12/11/24 15:25 BL (Rec: 12/11/24 17:23 BL Laptop) Scapula Strength Scapula Manual Muscle Testing Right Elevation (C4) 5 Normal Adduction 4+ Good+ Left Elevation (C4) 5 Normal Adduction 4- Good- Shoulder Strength Shoulder Manual Muscle Testing Right Flexion 4+ Good+ Abduction (C5) 4+ Good+ Adduction 4+ Good+ External Rotation 4+ Good+ Internal Rotation 4+ Good+ Left Flexion 4 Good Extension 4- Good- Abduction (C5) 4- Good- Adduction 4 Good External Rotation 4 Good Internal Rotation 4 Good PT-OP-Q Treatments Start: 12/11/24 15:25 Freq: Status: Active Protocol: Document 02/16/25 10:47 BL (Rec: 02/16/25 11:25 BL Laptop) Therapeutic Exercises Prone Exercises Ts, Ys, Ext Prone Exercise Name SB 75cm Side bilateral Resistance 3#, Reps/Minutes 15x Comments cues for shoulder stabilization. Standing Exercises Theraband Standing Exercise high row, 90 90 ER Name Resistance grn, peach Comments 2x10 stability Standing Exercise , wall ball, wall walks w/TB (reviewed for home) Name Equipment Used classic/ red TB, lvl 1 Comments 3x8 Body Blade Standing Exercise IR/ER, flex/ext, abd/add, single hand and double hand Name Resistance classic Comments 3x 30 sec shoulder Standing Exercise standing shld abd to 90, reviewed Name Resistance 2# Comments 2x10 PT-OP-T Assessment and Plan Start: 12/11/24 15:25 Freq: Status: Active Protocol: Document 02/16/25 10:47 BL (Rec: 02/16/25 11:25 BL Laptop) Physical Therapy Assessment Goals Four Hemodialysis Technician Goal (LTG) Pt will be able to complete away form body abduction to 90 deg with 5# without scapular compensation by DC for improved functional mobility with ADLS. 3 Half-Way Goal (LTG) Pt will be able to complete 10 pushups without winging of L scapular for functional strength training by DC to reduce risk of re-injury. (progressing) 02/11/25: pt is able to complete 10x table push ups with mild scapular compensations this date. 2 Hemodialysis Technician Goal (LTG) Pt will demo shoulder flexion strength of 4+/5 by DC for improved functional strength for ADLS. (goal met) 1 Short Term Goal (STG Pt will be ind with HEP within 2 visits in order to ) progress toward skilled nursing therapy goals. (goal met) Half-Way Goal (LTG) Pt will demo full shoulder flexion to 160 deg or better by DC for improved functional range for overhead activities. (goal met) Assessment Summary Assessment Pt tolerates session well and fatigued following. Pt reports continues to workout at gym and can tell the shoulder continues to strengthen. Continue to focus on scapular stability with overhead activity. Physical Therapy Plan Frequency and Duration Frequency of 2x/Week Treatment Duration of 8 treatment (weeks) Plan of Care Start 12/11/24 Date Plan of Care End 04/08/25 Date Next Visit Focus/Plan Next Note Type Treatment Note Next Visit Plan review gym workout and modify, progress scapular strengthening, AROM of glenohumeral ROM/ strengthening
--- NOTE | 2025-02-25 16:30 | PT.OTN ---
Current Diagnoses Other specified postprocedural states (02/25/25) Physical Therapy Treatment Note PT OP: Cervical/Upper Extremity Start: 02/25/25 16:09 Freq: Status: Active Protocol: Document 02/25/25 16:09 BL (Rec: 02/25/25 16:17 BL Laptop) Out-Patient Physical Therapy Visit Information Visit Information Visit Type Treatment Note Visit Start Time 15:15 Visit Stop Time 15:55 Visit Number (10) 07/24 Number of CLEANER TOUCH UP WORKER Visits 0 Progress Note Due 03/14/25 OP-PT Subjective Patient Comments Patient Comments Pt presents to the clinic this date and reports he is doing well. States shoulder is doing well. Therapeutic Exercises Supine Exercises Is Supine Exercise Name 90 90 ER Resistance SB 0# Comments 2x10 Ts, Is, As Resistance SB 3# Comments 2 x10 Standing Exercises Theraband Standing Exercise high row, 90 90 ER Name Resistance grn, peach Comments 2x10 stability Standing Exercise , wall ball, wall walks w/TB (reviewed for home) Name Equipment Used classic/ red TB, lvl 1 Comments 3x8 Physical Therapy Assessment Goals Four Well Logging Captain Goal (LTG) Pt will be able to complete away form body abduction to 90 deg with 5# without scapular compensation by DC for improved functional mobility with ADLS. 3 Well Logging Captain Goal (LTG) Pt will be able to complete 10 pushups without winging of L scapular for functional strength training by DC to reduce risk of re-injury. (progressing) 02/11/25: pt is able to complete 10x table push ups with mild scapular compensations this date. 2 Assisted Goal (LTG) Pt will demo shoulder flexion strength of 4+/5 by DC for improved functional strength for ADLS. (goal met) 1 Short Term Goal (STG Pt will be ind with HEP within 2 visits in order to ) progress toward buttermaker continuous churn therapy goals. (goal met) Well Logging Captain Goal (LTG) Pt will demo full shoulder flexion to 160 deg or better by DC for improved functional range for overhead activities. (goal met) Assessment Summary Assessment Pt continues to demo improved UE strength and RC mobility. Pt does continue to demo difficulty with away from body activities. Continue to advance strength training per pt tolerance. No pain noted this date. Physical Therapy Plan Frequency and Duration Frequency of 2x/Week Treatment Duration of 8 treatment (weeks) Plan of Care Start 12/11/24 Date Plan of Care End 04/08/25 Date Next Visit Focus/Plan Next Note Type Treatment Note Next Visit Plan review gym workout and modify, progress scapular strengthening, AROM of glenohumeral ROM/ strengthening
--- NOTE | 2025-03-03 16:07 | PT.OTN ---
Current Diagnoses Other specified postprocedural states (03/03/25) Physical Therapy Treatment Note PT OP: Cervical/Upper Extremity Start: 02/25/25 16:09 Freq: Status: Active Protocol: Document 03/03/25 15:14 BL (Rec: 03/03/25 16:07 BL Laptop) Out-Patient Physical Therapy Visit Information Visit Information Visit Type Treatment Note Visit Start Time 15:15 Visit Stop Time 15:55 Visit Number (11) 4/10 Number of COPYRIGHT EXPERT Visits 0 Progress Note Due 03/14/25 OP-PT Subjective Patient Comments Patient Comments Pt presents to the clinic this date and reports he is doing well, states he was able to make it back to the gym and tolerated it well. Therapeutic Exercises Standing Exercises Theraband Standing Exercise high row, 90 90 ER, reviewed Name Resistance grn, mitzich Comments 2x10 stability Standing Exercise wall ball, wall walks w/TB (reviewed for home) Name Equipment Used green TB, lvl 1 Comments 3x8 Body Blade Standing Exercise IR/ER, flex/ext, abd/add, single hand and double hand Name Resistance classic Comments 3x 30 sec Physical Therapy Assessment Goals Four Brick Yard Hand Goal (LTG) Pt will be able to complete away form body abduction to 90 deg with 5# without scapular compensation by DC for improved functional mobility with ADLS. 3 Prison Goal (LTG) Pt will be able to complete 10 pushups without winging of L scapular for functional strength training by DC to reduce risk of re-injury. (progressing) 02/11/25: pt is able to complete 10x table push ups with mild scapular compensations this date. 2 Brick Yard Hand Goal (LTG) Pt will demo shoulder flexion strength of 4+/5 by DC for improved functional strength for ADLS. (goal met) 1 Short Term Goal (STG Pt will be ind with HEP within 2 visits in order to ) progress toward long chain quiller tender therapy goals. (goal met) Brick Yard Hand Goal (LTG) Pt will demo full shoulder flexion to 160 deg or better by DC for improved functional range for overhead activities. (goal met) Assessment Summary Assessment Pt continues to demo improved UE strength and RC mobility. Pt does continue to demo difficulty with away from body activities. Continue to advance strength training per pt tolerance. No pain noted this date but fatigued following. Physical Therapy Plan Frequency and Duration Frequency of 2x/Week Treatment Duration of 8 treatment (weeks) Plan of Care Start 12/11/24 Date Plan of Care End 04/08/25 Date Next Visit Focus/Plan Next Note Type Treatment Note Next Visit Plan review gym workout and modify, progress scapular strengthening, AROM of glenohumeral ROM/ strengthening
--- NOTE | 2025-03-25 14:15 | PT.OPDS ---
Current Diagnoses Other specified postprocedural states (03/03/25) Visit Care Team Role Provider Type Juana Mcmanus DO Attending Provider Physician Family Provider Primary Care Provider Referring Provider Specialty: Family Practice Address: [address] [place] [address], [facility] [address], [place], [address] Email: [email or web address] Visit Number Visit Number (11) 10/22 Discharge Summary Pt moved out of the area, plan to DC pt at this time. PT OP: Cervical/Upper Extremity Start: 02/25/25 16:09 Freq: Status: Active Protocol: Document 03/03/25 15:14 BL (Rec: 03/03/25 16:07 BL Laptop) Out-Patient Physical Therapy Visit Information Visit Information Visit Type Treatment Note Visit Start Time 15:15 Visit Stop Time 15:55 Visit Number (11) 10/22 Number of COOK SAUCE Visits 0 Progress Note Due 03/14/25 OP-PT Subjective Patient Comments Patient Comments Pt presents to the clinic this date and reports he is doing well, states he was able to make it back to the gym and tolerated it well. Therapeutic Exercises Standing Exercises Theraband Standing Exercise high row, 90 90 ER, reviewed Name Resistance cindy, peach Comments 2x10 stability Standing Exercise wall ball, wall walks w/TB (reviewed for home) Name Equipment Used green TB, lvl 1 Comments 3x8 Body Blade Standing Exercise IR/ER, flex/ext, abd/add, single hand and double hand Name Resistance classic Comments 3x 30 sec Physical Therapy Assessment Goals Four Manager Care Goal (LTG) Pt will be able to complete away form body abduction to 90 deg with 5# without scapular compensation by DC for improved functional mobility with ADLS. 3 Care Home Goal (LTG) Pt will be able to complete 10 pushups without winging of L scapular for functional strength training by DC to reduce risk of re-injury. (progressing) 02/11/25: pt is able to complete 10x table push ups with mild scapular compensations this date. 2 Care Home Goal (LTG) Pt will demo shoulder flexion strength of 4+/5 by DC for improved functional strength for ADLS. (goal met) 1 Short Term Goal (STG Pt will be ind with HEP within 2 visits in order to ) progress toward terminal makeup operator therapy goals. (goal met) Care Home Goal (LTG) Pt will demo full shoulder flexion to 160 deg or better by DC for improved functional range for overhead activities. (goal met) Assessment Summary Assessment Pt continues to demo improved UE strength and RC mobility. Pt does continue to demo difficulty with away from body activities. Continue to advance strength training per pt tolerance. No pain noted this date but fatigued following. Physical Therapy Plan Frequency and Duration Frequency of 2x/Week Treatment Duration of 8 treatment (weeks) Plan of Care Start 12/11/24 Date Plan of Care End 04/08/25 Date Next Visit Focus/Plan Next Note Type Treatment Note Next Visit Plan review gym workout and modify, progress scapular strengthening, AROM of glenohumeral ROM/ strengthening
== END 2025-04-05 10:42 | disposition home or self-care (01) ==
LOC: PHYS 15:15
PROVIDERS: Family Provider Family Medicine; PCP Family Medicine; Referring Provider Family Medicine; Visit Provider Family Medicine
DX: Z98.890 Other specified postprocedural states (principal)
CPT/HCPCS: 97110; 97162